=== PATIENT | female | born 1955 | race Caucasian/White ===

== ENCOUNTER 2017-10-17 20:11 | Emergency (ER) | payer OTHER ==
[2017-10-17 20:20] VITALS: BP 120/48; PULSE 80; RESP 16; TEMP 98; O2SAT 100
--- NOTE | 2017-10-17 22:27 | ED PDOC ---
HPI: General Adult Time Seen by Provider: 10/17/17 20:35 Chief Complaint (Nursing): Eye Problem Chief Complaint (Provider): Eye lid swelling History Per: Patient History/Exam Limitations: no limitations Onset/Duration Of Symptoms: Days (2) Have you had recent travel within the past 21 days to any of the following countries: [place], [place], [place] or [place]?: No Additional Complaint(s): Pt reports lots of allergies and states she has been doing well for a month. Pt states she was feeling some itchiness before bed and when she woke up her upper eyelids were swollen and Past Medical History Reviewed: Historical Data, Nursing Documentation, Vital Signs Vital Signs: Last Vital Signs Temp 98.0 F 10/17/17 20:17 Pulse 80 10/17/17 20:17 Resp 16 10/17/17 20:17 BP 120/48 L 10/17/17 20:17 Pulse Ox 100 10/17/17 20:17 - Medical History PMH: No Chronic Diseases - Surgical History Surgical History: No Surg Hx - Family History Family History: States: No Known Family Hx - Living Arrangements Living Arrangements: With Family - Home Medications Home Medications: Ambulatory Orders Medication Instructions Recorded DiphenhydrAMINE [Benadryl] 50 mg PO Q6H PRN #20 cap 10/17/17 predniSONE [predniSONE Tab] 20 mg PO DAILY #12 tab 10/17/17 - Allergies Allergies/Adverse Reactions: Allergies Allergy/AdvReac Type Severity Reaction Status Date / Time No Known Allergies Allergy Verified 10/17/17 20:17 Review of Systems ROS Statement: Except As Marked, All Systems Reviewed And Found Negative Constitutional: Negative for: Fever Skin: Positive for: Rash Physical Exam - Reviewed Nursing Documentation Reviewed: Yes Vital Signs Reviewed: Yes - Physical Exam Appears: Positive for: Well, Non-toxic, No Acute Distress Head Exam: Positive for: ATRAUMATIC, NORMAL INSPECTION, NORMOCEPHALIC Skin: Positive for: Warm, Rash (Erythematous rash on the neck, erythema and edema of the upper eyelids, which is mild ). Negative for: Normal Color Eye Exam: Positive for: Normal appearance ENT: Positive for: Normal ENT Inspection, Pharynx Is Neck: Positive for: Normal, Painless ROM Cardiovascular/Chest: Positive for: Regular Rate, Rhythm Respiratory: Positive for: Normal Breath Sounds. Negative for: Accessory Muscle Use, Respiratory Distress Back: Positive for: Normal Inspection Extremity: Positive for: Normal ROM Neurologic/Psych: Positive for: Alert, Oriented - ECG O2 Sat by Pulse Oximetry: 100 Disposition - Clinical Impression Clinical Impression: Allergic reaction - Patient ED Disposition Is Patient to be Admitted: No Counseled Patient/Family Regarding: Diagnosis, Need For Followup, Rx Given - Disposition Disposition: Routine/Home Disposition Time: 22:25 Condition: GOOD Prescriptions: DiphenhydrAMINE [Benadryl] 50 mg PO Q6H PRN #20 cap PRN Reason: Itching / Pruritus predniSONE [predniSONE Tab] 20 mg PO DAILY #12 tab Instructions: Dian (DC) Print Language: SINHALA
== END 2017-10-17 22:32 | disposition home or self-care (01) ==
LOC: H.ER 20:11
DX: T78.40XA Allergy, unspecified, initial encounter (principal)
CPT/HCPCS: 96372; 99283; J2930

== ENCOUNTER 2017-12-01 15:04 | Emergency (ER) | payer OTHER ==
[2017-12-01 15:27] VITALS: TEMP 98.3; O2SAT 98
[2017-12-01] MEDS ORDERED: Sodium Chloride 0.9% 500 ML IV STA (15:52)
[2017-12-01] MEDS ORDERED: DiphenhydrAMINE 50 mg/ml Inj IVP STA (15:52)
[2017-12-01] MEDS ORDERED: DiphenhydrAMINE 50 mg/ml Inj ONE (16:00)
--- NOTE | 2017-12-01 16:18 | ED PDOC ---
HPI: Abdomen Time Seen by Provider: 12/01/17 15:37 Chief Complaint (Nursing): Abdominal Pain Chief Complaint (Provider): Abdominal Pain History Per: Patient History/Exam Limitations: no limitations Onset/Duration Of Symptoms: Days (x4 days) Current Symptoms Are (Timing): Still Present Location Of Pain/Discomfort: Epigastric Quality Of Discomfort: Cramping Associated Symptoms: Vomiting, Diarrhea, Loss Of Appetite Additional Complaint(s): 62 y/o female presents to the ED complaining of epigastric abdominal pain, radiating to the entire abdomen, that started , 11/28/2017. Pain is crampy. Patient is also complaining of multiple episodes of vomiting (non-bloody , non- bilious) and diarrhea (watery, non-bloody). Reports loss of appetite, although diarrhea and vomiting have decreased. Today she felt weakness, diffused body aches, lightheadedness and chills. Denies sick contact, recent travel, antibiotics. Denies any further medical complaints. PMD: Elliott Cabrera MD Past Medical History Reviewed: Historical Data, Nursing Documentation, Vital Signs Vital Signs: Last Vital Signs Temp 98.3 F 12/01/17 15:25 Pulse 87 12/01/17 15:25 Resp 16 12/01/17 15:25 BP 136/82 12/01/17 15:25 Pulse Ox 98 12/01/17 17:26 - Medical History PMH: Migraine - Surgical History Surgical History: Tonsillectomy, Other surgeries: Adenectomy, tubal ligation - Family History Family History: States: Unknown Family Hx - Social History Current smoker - smoking cessation education provided: No Alcohol: None Drugs: Denies - Home Medications Home Medications: Ambulatory Orders Medication Instructions Recorded DiphenhydrAMINE [Benadryl] 50 mg PO Q6H PRN #20 cap 10/17/17 predniSONE [predniSONE Tab] 20 mg PO DAILY #12 tab 10/17/17 Omeprazole Magnesium [Prilosec Otc] 20 mg PO DAILY #30 tcp 12/01/17 Ondansetron ODT [Zofran ODT] 1 odt PO Q6 PRN #20 odt 12/01/17 - Allergies Allergies/Adverse Reactions: Allergies Allergy/AdvReac Type Severity Reaction Status Date / Time No Known Allergies Allergy Verified 12/01/17 15:25 Review of Systems ROS Statement: Except As Marked, All Systems Reviewed And Found Negative (As per HPI, otherwise negative) Constitutional: Positive for: Weakness, Other (loss of appetite) Gastrointestinal: Positive for: Vomiting, Abdominal Pain, Diarrhea Physical Exam - Reviewed Nursing Documentation Reviewed: Yes Vital Signs Reviewed: Yes - Physical Exam Appears: Positive for: Non-toxic, No Acute Distress (Tired appearing) Head Exam: Positive for: ATRAUMATIC, NORMOCEPHALIC Skin: Positive for: Warm, Dry Eye Exam: Positive for: EOMI, PERRL ENT: Positive for: Pharynx Is (clear), Other (tacky mucous membranes) Neck: Positive for: Painless ROM, Supple Cardiovascular/Chest: Positive for: Regular Rate, Rhythm. Negative for: Murmur Respiratory: Positive for: Normal Breath Sounds. Negative for: Wheezing Gastrointestinal/Abdominal: Positive for: Soft, Tenderness (Epigastric area). Negative for: Mass, Guarding, Rebound Back: Positive for: Normal Inspection. Negative for: Decreased ROM Extremity: Positive for: Normal ROM. Negative for: Deformity Lymphatic: Negative for: Adenopathy Neurologic/Psych: Positive for: Alert. Negative for: Motor/Sensory Deficits - Laboratory Results Result Diagrams: 12/01/17 16:37 12/01/17 16:37 Urine dip results: Positive for: Blood (moderate), Protein (moderate trace protein). Negative for: Leukocyte Esterase, Nitrate, Ketones, Glucose - ECG O2 Sat by Pulse Oximetry: 98 (RA) Pulse Ox Interpretation: Normal Medical Decision Making Medical Decision Making: Time: 15:56 Initial Impression: Vomiting, diarrhea, abdominal pain Differential diagnosis: Gastroenteritis, dehydration, electrolyte abnormality, pancreatitis, hepatitis, viral syndrome Plan: CMP Lipase Magnesium Phosphorous Urine dipstick CBC w/ differential PTT Prothrombin Time Dextrose 5% 1L IV Benadryl 25mg IVP Pepcid 20mg IVP Sodium chloride 0.5L IV Promethazine 25mg IV IV insertion Influenza A B Reevaluation Time: 17:25 --labs reviewed and no emergently significant abnormalities noted --Pt reports feeling better. Tolerating fluids in ER. --DW pt findings and plan of care. Stable for dc with clinic followup. Rest and fluids at home. Reasons to RTER dw pt. Scribe Attestation: Documented by Helio Martin acting as a scribe for Emily Vargas MD. Scribe Attestation: All medical record entries made by the Scribe were at my direction and personally dictated by me. I have reviewed the chart and agree that the record accurately reflects my personal performance of the history, physical exam, medical decision making, and the department course for this patient. I have also personally directed, reviewed, and agree with the discharge instructions and disposition. Disposition - Clinical Impression Clinical Impression: Dehydration, Vomiting and diarrhea Counseled Patient/Family Regarding: Studies Performed, Diagnosis, Need For Followup, Rx Given - Disposition Referrals: [facility] [Outside] - 12/02/17 ([facility] Disposition: Routine/Home Disposition Time: 17:30 Condition: IMPROVED Prescriptions: Omeprazole Magnesium [Prilosec Otc] 20 mg PO DAILY #30 tcp Ondansetron ODT [Zofran ODT] 1 odt PO Q6 PRN #20 odt PRN Reason: Nausea/Vomiting Instructions: Dehydration, Adult (DC), Viral Gastroenteritis Forms: [facility] ED School/Work Excuse Print Language: BRUNEIAN
[2017-12-01 16:48] LABS: BASO % 0.6 % (0.0-2.0); EOS # 0.1 K/uL (0.0-0.7); EOS % 1.6 % (0.0-4.0); HEMOGLOBIN 13.4 g/dL (12.0-16.0); LYMPH # 1.6 K/uL (1.0-4.3); MEAN CELL VOLUME 89.5 fl (81.0-99.0); MEAN CORPUSCULAR HEMOGLOBIN 30.5 pg (27.0-31.0); MEAN PLATELET VOLUME 8.5 fl (7.2-11.7); MONO # 0.4 K/uL (0.0-0.8); MONO % 6.2 % (0.0-10.0); NEUT # 4.2 K/uL (1.8-7.0); NEUT % 66.6 % (50.0-75.0); NRBC % 0.1 % (0.0-0.0); RBC 4.41 Mil/uL (3.80-5.20); RED CELL DISTRIBUTION WIDTH 13.3 % (11.5-14.5); WHITE BLOOD COUNT 6.3 K/uL (4.8-10.8)
[2017-12-01 16:52] LABS: ALB/GLOB RATIO 1.2 (1.0-2.1); ALBUMIN 3.9 g/dL (3.5-5.0); ALT/SGPT 64 U/L (9-52); AST/SGOT 44 U/L (14-36); BLOOD UREA NITROGEN 12 mg/dl (7-17); CALCIUM 9.1 mg/dL (8.4-10.2); GFR AFRICAN-AMERICAN > 60; GFR NON-AFRICAN AMERICAN > 60; LIPASE 242 U/L (23-300)
[2017-12-01 16:54] LABS: INR 1.1 (0.9-1.2); PARTIAL THROMBOPLASTIN TIME 32.8 Seconds (25.6-37.1); PROTHROMBIN TIME 12.1 Seconds (9.8-13.1)
[2017-12-01 18:10] VITALS: BP 128/81; PULSE 76; RESP 18
== END 2017-12-01 18:08 | disposition home or self-care (01) ==
LOC: H.ER 15:04
DX: E86.0 Dehydration (principal); R19.7 Diarrhea, unspecified; R11.10 Vomiting, unspecified
CPT/HCPCS: 80053; 83690; 83735; 84100; 85025; 85610; 85730; 87804; 96361; 96374; 96375; 99284; J1200; J2550; J7040; J7042

== ENCOUNTER 2017-12-29 12:07 | Emergency (ER) | payer SELFPAY ==
[2017-12-29 12:12] VITALS: BP 121/80; TEMP 97.8
[2017-12-29 12:13] VITALS: BMI 23.8
[2017-12-29 12:28] VITALS: PULSE 89; RESP 18; O2SAT 100
[2017-12-29] MEDS ORDERED: Tdap Vaccine 0.5 ml Vial (10-64 yrs) IM ONE ×2 (12:32→12:39)
--- NOTE | 2017-12-29 12:34 | ED PDOC ---
Lower Extremity Pain/Injury Time Seen by Provider: 12/29/17 12:20 Chief Complaint (Nursing): Trauma Chief Complaint (Provider): Left knee pain History Per: Patient History/Exam Limitations: no limitations Onset/Duration Of Symptoms: Days Current Symptoms Are (Timing): Still Present Additional Complaint(s): 62 y/o female with history of GERD, presents to ED with complaints of left knee pain s/p mechanical fall 4 days ago. Patient states she was walking in her home when she tripped and fell, injuring her knee, sustaining abrasion. Patient is concerned about possible infection to abrasion on knee. She states pain and redness are worsening but she denies fever or chills. No meds taken for pain relief. Patient is not sure of last tetanus. PMD: [facility] Past Medical History Reviewed: Historical Data, Nursing Documentation, Vital Signs Vital Signs: Last Vital Signs Temp 97.8 F 12/29/17 12:26 Pulse 89 12/29/17 12:26 Resp 18 12/29/17 12:26 BP 121/80 12/29/17 12:26 Pulse Ox 100 12/29/17 12:26 - Medical History PMH: GERD - Surgical History Surgical History: (x 2) Other surgeries: Tubal ligation, nasal bone fracture repair - Family History Family History: States: No Known Family Hx - Living Arrangements Living Arrangements: With Family - Social History Current smoker - smoking cessation education provided: No Alcohol: None Drugs: Denies - Immunization History Hx Tetanus Toxoid Vaccination: No (not sure of last tetanus) - Home Medications Home Medications: Ambulatory Orders Medication Instructions Recorded DiphenhydrAMINE [Benadryl] 50 mg PO Q6H PRN #20 cap 10/17/17 predniSONE [predniSONE Tab] 20 mg PO DAILY #12 tab 10/17/17 Omeprazole Magnesium [Prilosec Otc] 20 mg PO DAILY #30 tcp 12/01/17 Ondansetron ODT [Zofran ODT] 1 odt PO Q6 PRN #20 odt 12/01/17 Clindamycin [Cleocin] 300 mg PO QID #28 cap 12/29/17 Ibuprofen [Motrin Tab] 800 mg PO Q8 PRN #20 tab 12/29/17 - Allergies Allergies/Adverse Reactions: Allergies Allergy/AdvReac Type Severity Reaction Status Date / Time No Known Allergies Allergy Verified 12/01/17 15:25 Wells Criteria for PE - Wells Criteria for Pulmonary Embolism Clinical Signs and Symptoms of DVT: No P.E is #1 Diagnosis, or Equally Likely: No Heart Rate >100: No Immobilization at least 3 days;Surgery previous 4 weeks: No Previous, objectively diagnosed PE or DVT: No Hemoptysis: No Malignancy w/treatment within 6 months, or palliative: No Total Score: 0 Review of Systems ROS Statement: Except As Marked, All Systems Reviewed And Found Negative Constitutional: Negative for: Fever, Chills Musculoskeletal: Positive for: Leg Pain (left knee injury) Physical Exam - Reviewed Nursing Documentation Reviewed: Yes Vital Signs Reviewed: Yes - Physical Exam Appears: Positive for: Well, Non-toxic, No Acute Distress Head Exam: Positive for: NORMOCEPHALIC Skin: Positive for: Normal Color. Negative for: Rash Eye Exam: Positive for: Normal appearance Extremity: Positive for: Normal ROM (full ROM of left knee), Other (abrasion to anterior left knee with mild tenderness and mild surrounding erythema). Negative for: Deformity Neurologic/Psych: Positive for: Alert, Oriented - ECG O2 Sat by Pulse Oximetry: 100 (RA) Pulse Ox Interpretation: Normal - Other Rad Left knee x-ray X-Ray: Interpreted by Me, Viewed By Me X-Ray Interpretation: no fx, no dis Medical Decision Making Medical Decision Making: Impression: Left knee injury Plan: -- XR left knee -- Motrin 600 mg PO -- Tetanus Booster 0.5ml IM Wound cleansed with saline and betadine, bacitracin and bandage applied, N/V intact s/p placement. Patient aware of x-ray results. Rx motrin and clindamycin given. Wound care instructions provided. Patient was instructed to follow up with clinic in 2-3 days. Scribe Attestation: Documented by Naifsa Jackman acting as a scribe for NGHIA Preston. Provider Attestation: All medical record entries made by the Scribe were at my direction and personally dictated by me. I have reviewed the chart and agree that the record accurately reflects my personal performance of the history, physical exam, medical decision making, and the department course for this patient. I have also personally directed, reviewed, and agree with the discharge instructions and disposition. Disposition - Clinical Impression Clinical Impression: Infected abrasion of knee, Requires a booster tetanus - Patient ED Disposition Is Patient to be Admitted: No Counseled Patient/Family Regarding: Studies Performed, Diagnosis, Need For Followup, Rx Given - Disposition Referrals: [facility] [Outside] Disposition: Routine/Home Disposition Time: 12:52 Condition: STABLE Additional Instructions: Wash wound daily with soap and water and apply bacitracin once per day. Take rx meds as directed. Follow up with clinic in 2-3 days. Prescriptions: Clindamycin [Cleocin] 300 mg PO QID #28 cap Ibuprofen [Motrin Tab] 800 mg PO Q8 PRN #20 tab PRN Reason: Pain, Moderate (4-7) Instructions: Skin Abrasions, Diphtheria and Tetanus Toxoids, and Acellular Pertussis Vaccine, Wound Infection Forms: [facility] (Citizen [place]) Print Language: CHINESE
--- NOTE | 2017-12-29 14:02 | RAD ---
PROCEDURE: Left Knee Radiographs. HISTORY: Pain. COMPARISON: None. FINDINGS: BONES: No acute fracture. JOINTS: Mild medial tibial femoral compartment narrowing. JOINT EFFUSION: None. OTHER FINDINGS: None. IMPRESSION: No demonstrated fracture or dislocation.
== END 2017-12-29 13:30 | disposition home or self-care (01) ==
LOC: H.ER 12:07
DX: L08.9 Local infection of the skin and subcutaneous tissue, unspecified (principal)

== ENCOUNTER 2018-01-20 19:14 | Emergency (ER) | payer SELFPAY ==
[2018-01-20 19:14] VITALS: BMI 23.8
[2018-01-20 19:29] VITALS: RESP 18
--- NOTE | 2018-01-20 19:45 | ED PDOC ---
History of Present Illness History of Present Illness: 62 y/o female presents to the ED cough productive of yellow sputum, nasal congestion, headache, and throat pain x 1 week. Patient has chest pain when coughing only. She denies fever, chills, nausea, vomiting, or recent travel. PMD: none HPI: Influenza Time Seen by Provider: 01/20/18 19:31 Chief Complaint: Cough, Cold, Congestion Chief Complaint (Provider): URI History Per: Patient Onset/Duration Of Symptoms: Days (1 week) Symptoms include: headache, sore throat, cough, nasal congestion. denies: fever Past Medical History Reviewed: Historical Data, Nursing Documentation, Vital Signs Vital Signs: Last Vital Signs Temp 98 F 01/20/18 19:26 Pulse 97 H 01/20/18 19:26 Resp 18 01/20/18 19:26 BP 145/81 01/20/18 19:26 Pulse Ox 95 01/20/18 19:26 - Medical History PMH: No Chronic Diseases, GERD - Surgical History Surgical History: Tonsillectomy, (x 2) Other surgeries: tubal ligation - Family History Family History: States: No Known Family Hx - Living Arrangements Living Arrangements: With Family - Social History Current smoker - smoking cessation education provided: No Ex-Smoker (has not smoked in the last 12 months): No Alcohol: None Drugs: Denies - Home Medications Home Medications: Ambulatory Orders Medication Instructions Recorded DiphenhydrAMINE [Benadryl] 50 mg PO Q6H PRN #20 cap 10/17/17 predniSONE [predniSONE Tab] 20 mg PO DAILY #12 tab 10/17/17 Omeprazole Magnesium [Prilosec Otc] 20 mg PO DAILY #30 tcp 12/01/17 Ondansetron ODT [Zofran ODT] 1 odt PO Q6 PRN #20 odt 12/01/17 Clindamycin [Cleocin] 300 mg PO QID #28 cap 12/29/17 Ibuprofen [Motrin Tab] 800 mg PO Q8 PRN #20 tab 12/29/17 Azithromycin [Zithromax] 250 mg PO DAILY #6 tab 01/20/18 Benzonatate 200 mg PO TID PRN #20 capsule 01/20/18 Fluticasone Propionate [Flonase] 1 actuation NS DAILY #1 bottle 01/20/18 - Allergies Allergies/Adverse Reactions: Allergies Allergy/AdvReac Type Severity Reaction Status Date / Time No Known Allergies Allergy Verified 12/01/17 15:25 Review of Systems ROS Statement: Except As Marked, All Systems Reviewed And Found Negative Constitutional: Negative for: Fever ENT: Positive for: Nose Congestion, Throat Pain Cardiovascular: Positive for: Chest Pain (due to cough) Respiratory: Positive for: Cough Gastrointestinal: Negative for: Nausea, Vomiting, Abdominal Pain, Diarrhea Neurological: Positive for: Headache. Negative for: Weakness, Numbness, Incoordination, Change in Speech, Confusion, Seizures, Altered Mental Status, Dizziness Physical Exam - Reviewed Nursing Documentation Reviewed: Yes Vital Signs Reviewed: Yes - Physical Exam Appears: Positive for: Well, Non-toxic, No Acute Distress Skin: Positive for: Normal Color. Negative for: Rash Eye Exam: Positive for: Normal appearance ENT: Positive for: Normal ENT Inspection Cardiovascular/Chest: Positive for: Regular Rate, Rhythm. Negative for: Murmur Respiratory: Positive for: Normal Breath Sounds. Negative for: Respiratory Distress Neurologic/Psych: Positive for: Alert, Oriented (x3) Medical Decision Making Medical Decision Making: Time: 19:26 Impression: 62 y/o female with URI symptoms Initial Plan: * EKG * Chest X-Ray Patient aware of diagnostic testing results. All questions answered. Will d/c with rx zithromax, tessalon perles and flonase. Patient was referred to clinic for follow up. Scribe Attestation: Documented by Elsie Jiménez acting as a scribe Emily Spicer PA-C. MD Kayibclem Attestation: All medical record entries made by the Scribe were at my direction and personally dictated by me. I have reviewed the chart and agree that the record accurately reflects my personal performance of the history, physical exam, medical decision making, and the department course for this patient. I have also personally directed, reviewed, and agree with the discharge instructions and disposition. - ECG Interpretation Of ECG: NSR 95 bpm, no acute changes, reviewed by PA and ED attending O2 Sat by Pulse Oximetry: 95 (RA) Pulse Ox Interpretation: Normal Disposition - Clinical Impression Clinical Impression: Sinusitis, Bronchitis - Patient ED Disposition Is Patient to be Admitted: No Counseled Patient/Family Regarding: Studies Performed, Diagnosis, Need For Followup, Rx Given - Disposition Referrals: [facility] [Outside] Disposition: Routine/Home Disposition Time: 20:10 Condition: STABLE Additional Instructions: Take rx meds as directed. Rest and drink plenty of fluids. Follow up with clinic in 2-3 days. Prescriptions: Azithromycin [Zithromax] 250 mg PO DAILY #6 tab Benzonatate 200 mg PO TID PRN #20 capsule PRN Reason: Cough Fluticasone Propionate [Flonase] 1 actuation NS DAILY #1 bottle Instructions: Sinusitis in Adults, Acute Bronchitis Forms: [facility] (Romanian)
[2018-01-20 20:14] VITALS: BP 132/71; PULSE 98; TEMP 98.4
[2018-01-20 20:16] VITALS: O2SAT 95
== END 2018-01-20 20:15 | disposition home or self-care (01) ==
LOC: H.ER 19:14
DX: J32.9 Chronic sinusitis, unspecified (principal); J40 Bronchitis, not specified as acute or chronic; Z87.891 Personal history of nicotine dependence

== ENCOUNTER 2018-10-01 09:44 | Day surgery (SDC) | payer SELFPAY ==
[2018-10-01 10:20] VITALS: BMI 20.5
[2018-10-01 12:10] VITALS: BP 123/76; PULSE 68; RESP 16; TEMP 97.3; O2SAT 100
--- NOTE | 2018-10-01 13:08 | CP.SDSHP ---
Same Day Surgery H & P - History Proposed Procedure: US guided FNA of right thyroid nodule Pre-Op Diagnosis: thyroid nodule - Allergies Allergies: Allergies No Known Allergies Allergy (Verified 10/01/18 10:20) - Physical Exam Vital Signs: Vital Signs 10/01/18 10/01/18 10/01/18 10:05 10:06 12:09 Temperature 97.4 F L 97.3 F L Pulse Rate 84 84 68 Respiratory 18 16 Rate Blood Pressure 115/70 123/76 O2 Sat by Pulse 98 100 Oximetry Mental Status: Alert & Oriented x3 Neuro: WNL Heart: WNL - Impression Impression: Pt with a 1.5 cm right thyroid nodule. Plan US guided FNA of right thyroid nodule Pt. Evaluated Today:Candidate for Anesthesia & Procedure: No - Date & Time Date: 10/01/18 Time: 12:45 Short Stay Discharge - Short Stay Discharge Admitting Diagnosis/Reason for Visit: THYROID NODULE Disposition: HOME/ ROUTINE
--- NOTE | 2018-10-01 13:09 | PCM.SURG1 ---
Surgeon's Initial Post Op Note - Surgeon's Notes Surgeon: Lucas Olivier MD Self Pay Collector: NONE Type of Anesthesia: Local Pre-Operative Diagnosis: thyroid nodule Operative Findings: A 1.5 cm solid right thyroid nodule Post-Operative Diagnosis: thyroid nodule Operation Performed: US guided FNA of right thyroid nodule. Five passes made into nodule with a 25 g needle. Specimen/Specimens Removed: 25 g FNA x 5 Estimated Blood Loss: EBL {In ML}: 0 Blood Products Given: N/A Drains Used: No Drains Post-Op Condition: Good Date of Surgery/Procedure: 10/01/18 Time of Surgery/Procedure: 13:05
--- NOTE | 2018-10-01 13:50 | US ---
PROCEDURE: Date of Procedure: 10/01/2018 PROCEDURE: 1. Ultrasound guided FNA of right thyroid nodule, CPT 27681 2. Ultrasound guidance for FNA, 97803 Medications: 3cc 1% Lidocaine HISTORY: Enlarged right thyroid nodule. TECHNIQUE: Following informed consent and procedure time-out, a limited ultrasound patient's neck confirmed the presence of a 1.5 Cm complex right thyroid nodule which is predominantly solid. After the patient's neck was prepped and draped in the usual sterile fashion, the skin was anesthetized with 1% lidocaine. Ultrasound-guided fine needle aspiration was then performed of the dominant right thyroid nodule. A total of 5 passes were made into the nodule with 25 gauge needle under ultrasound guidance. The FNA specimen was sent for routine pathology and genetics . Post biopsy ultrasound showed no hematoma. IMPRESSION: Ultrasound-guided FNA of the dominant right thyroid nodule.
== END 2018-10-01 14:15 | disposition home or self-care (01) ==
LOC: H.OPSURG 09:44
PROVIDERS: ATTEND Student in an Organized Health Care Education/Training Program
DX: E04.1 Nontoxic single thyroid nodule (principal)